=== PATIENT | male | born 1980 | race Caucasian/White ===

== ENCOUNTER 2016-08-09 19:59 | Emergency (ER) | payer OTHER ==
[~2016-08-09] VITALS: Ht 180.3 cm; Wt 88.9 kg
[~2016-08-09 19:59] MED LIST: Acetaminophen PO; MORPHINE IVP; VANCOCIN 11000 MG/20 IV
[2016-08-09 20:21] VITALS: BP 141/75
--- NOTE | 2016-08-09 20:33 | NUR ---
AMBULATED TO ER BED 6
--- NOTE | 2016-08-09 20:34 | NUR ---
A36Y M BIB SELF C/O LEFT ANKLE PAIN AT 1800 TODAY . PT STATES HE SLIPPED AND TWISTED HIS ANKLE ATTEMPTING TO JUMP PASS A POTHOLE .PT DENIES N/V/D; SKIN IS PINK/WARM/DRY; AAOX4 WITH EVEN AND STEADY GAIT; LUNGS CLEAR BL; HR EVEN AND REGULAR; PT DENIES ANY FEVER, CP, SOB, OR COUGH AT THIS TIME; PATIENT STATES PAIN OF 9/10 AT THIS TIME; VSS; PATIENT POSITIONED FOR COMFORT; HOB ELEVATED; BEDRAILS UP X2; BED DOWN. ER MD MADE AWARE OF PT STATUS.
--- NOTE | 2016-08-09 21:07 | NUR ---
Patient being evaluated by physician DR ANN at bedside.
[2016-08-09] MEDS ORDERED: KETOROLAC 60 MG/2 ML VIAL IM ONE (21:50)
[2016-08-09 23:08] VITALS: BP 128/69
--- NOTE | 2016-08-09 23:08 | NUR ---
Patient discharged with v/s stable. Written and verbal after care instructions given and explained. Patient alert, oriented and verbalized understanding of instructions. Wheel Chair Assisted with steady gait. All questions addressed prior to discharge. ID band removed. Patient advised to follow up with PMD. Rx of MOTRIN 800MG AND NORCO 5/325MG given. Patient educated on indication of medication including possible reaction and side effects. Opportunity to ask questions provided and answered.
== END 2016-08-09 23:08 | disposition home or self-care (01) ==
LOC: MED 19:59
DX: S86.002A Unspecified injury of left Achilles tendon, initial encounter (principal); X58.XXXA Exposure to other specified factors, initial encounter; Y93.89 Activity, other specified; Y92.89 Other specified places as the place of occurrence of the external cause; Y99.8 Other external cause status
CPT/HCPCS: 29515; 73610; 96372; 99284; J1885

== ENCOUNTER 2016-12-24 16:29 | Emergency (ER) | payer OTHER ==
[~2016-12-24] VITALS: Ht 180.3 cm; Wt 90.7 kg
[~2016-12-24 16:29] MED LIST changes: +MORP4SOL14 IVP; -MORPHINE IVP; -VANCOCIN 11000 MG/20 IV
[2016-12-24 16:37] VITALS: BP 131/60
--- NOTE | 2016-12-24 16:40 | NUR ---
Patient ambulated to bed 07.
--- NOTE | 2016-12-24 16:52 | NUR ---
Dr. Perez evaluating patient at bedside.
--- NOTE | 2016-12-24 17:00 | NUR ---
36/M c/o abscess to left upper thight x2 days. Pt c/o itchiness. Denies fever or chills. VSS.
[2016-12-24] MEDS ORDERED: SULFAMETH/TRIMETH DS 800/160MG 1 TAB PO ONE (17:10)
[2016-12-24] MEDS ORDERED: CEPHALEXIN 500 MG CAP PO ONE (17:10)
[2016-12-24 17:49] VITALS: BP 121/81
--- NOTE | 2016-12-24 17:49 | NUR ---
Patient discharged with v/s stable. Written and verbal after care instructions given and explained. Patient alert, oriented and verbalized understanding of instructions. Ambulatory with steady gait. All questions addressed prior to discharge. ID band removed. Patient advised to follow up with PMD. Rx of BACTRIM DS,MOTRIN,KEFLEX given. Patient educated on indication of medication including possible reaction and side effects. Opportunity to ask questions provided and answered.
--- NOTE | 2016-12-24 17:49 | NUR ---
Chart checked and completed. The patient's care was reviewed and supervised by Lynn Pinto RN.
== END 2016-12-24 17:49 | disposition home or self-care (01) ==
LOC: MED 16:29
DX: L03.116 Cellulitis of left lower limb (principal); R03.0 Elevated blood-pressure reading, without diagnosis of hypertension
CPT/HCPCS: 99283

== ENCOUNTER 2017-02-22 20:13 | Emergency (ER) | payer OTHER ==
[~2017-02-22] VITALS: Ht 180.3 cm; Wt 88.0 kg
[2017-02-22 20:19] VITALS: BP 132/78
--- NOTE | 2017-02-22 21:09 | NUR ---
36Y M BIB FAMILY C/O LEFT FOOT PAIN X 2 DAYS. PT STATES HE HAD SX ON THE FOOT ON 09/06/16 AND SINCE THEN HAS BEEN HAVING INTERMITTENT FOOT PAIN. PT STATES PAIN IS NUMBING 9/10 PAIN WHEN WALKING. PT BREATHING IS UNLABORED AND CLEAR BILAT. PT AAOX4.
--- NOTE | 2017-02-22 21:09 | NUR ---
Patient ambulated to bed 04.
[2017-02-22] MEDS ORDERED: NACL 0.9% 1,000 ML IV ONE (21:30)
[2017-02-22 21:39] LABS: BASOPHILS # (AUTO) 0.4 K/uL (0.00-0.22); EOSINOPHILS # (AUTO) 0.1 K/uL (0-0.4); HEMATOCRIT 44.9 % (36-52); HEMOGLOBIN 14.6 g/dL (12.0-18.0); MEAN CORPUSCULAR HEMOGLOBIN 29 pg (27-31); MEAN CORPUSCULAR HGB CONC 33 g/dL (33-37); MEAN CORPUSCULAR VOLUME 90 fL (80-94); MONOCYTES # (AUTO) 0.7 K/uL (0.8-1.0); NEUTROPHILS # (AUTO) 4.7 K/uL (1.8-7.7); PLATELET COUNT (AUTO) 233 K/uL (140-450); RED CELL DISTRIBUTION WIDTH 12.1 % (11.6-13.7); WHITE BLOOD COUNT (AUTO) 7.9 K/uL (4.8-10.8)
[2017-02-22 22:06] LABS: ALBUMIN 4.2 g/dL (3.4-5.0); ANION GAP 13.5 (8-16); CARBON DIOXIDE 23.4 mmol/L (21-32); POTASSIUM 3.9 mmol/L (3.5-5.1); TOTAL BILIRUBIN 0.4 mg/dL (0.0-1.0)
[2017-02-22 22:07] LABS: PROTHROMBIN TIME 10.6 secs (10.8-13.4)
[2017-02-22] MEDS ORDERED: KETOROLAC 30 MG/ML VIAL IVP ONE (22:15)
--- NOTE | 2017-02-22 22:25 | NUR ---
IV removed, catheter intact and site benign. Applied folded 4x4 gauze and tape to stop bleeding.
--- NOTE | 2017-02-22 22:28 | NUR ---
Patient discharged with v/s stable. Written and verbal after care instructions given and explained. Patient alert, oriented and verbalized understanding of instructions. Ambulatory with steady gait. All questions addressed prior to discharge. ID band removed. Patient advised to follow up with PMD. Rx of MOTRIN 800MG, KEFLEX 500MG, ULTRAM 50MG, AND BACTRIM DS given. Patient educated on indication of medication including possible reaction and side effects. Opportunity to ask questions provided and answered.
[2017-02-22 22:29] VITALS: BP 122/76
== END 2017-02-22 22:28 | disposition home or self-care (01) ==
LOC: MED 20:13
DX: L03.116 Cellulitis of left lower limb (principal); Z79.899 Other long term (current) drug therapy
CPT/HCPCS: 36415; 73610; 80053; 85025; 85610; 85730; 87040; 96361; 96374; 99285; J1885; J7030; Q0092

== ENCOUNTER 2017-03-17 14:27 | Emergency (ER) | payer OTHER ==
[~2017-03-17] VITALS: Ht 180.3 cm; Wt 89.9 kg
[2017-03-17 14:38] VITALS: BP 144/89
--- NOTE | 2017-03-17 15:49 | NUR ---
PATIENT TO BED 8 AT THIS TIME.
--- NOTE | 2017-03-17 15:57 | NUR ---
PATIENT PRESENTS TO ED WITH C/O ABSCESS ON RT BUTTOCKS x 2 DAYS AGO. PT STATES HE WAS REFFERED TO ER BY PMD. PT DENIES INJURY OR TRAUMA. ERYTHEMA NOTDED ON RT BUTTOCK;PT STATES HE HAS MRSA. DENIES N/V/D; SKIN IS PINK/WARM/DRY; AAOX4 WITH EVEN AND STEADY GAIT; LUNGS CLEAR BL; HR EVEN AND REGULAR; PT DENIES ANY FEVER, CP, SOB, OR COUGH AT THIS TIME; PATIENT STATES PAIN OF 10/10 AT THIS TIME;PATIENT POSITIONED FOR COMFORT; HOB ELEVATED; BEDRAILS UP X2; BED DOWN. ER MD MADE AWARE OF PT STATUS.
[2017-03-17] MEDS ORDERED: diphenhydrAMINE 50 MG/ML VIAL IM ONE (17:20)
[2017-03-17] MEDS ORDERED: MORPHINE SULFATE 4 MG/ML SYR IM ONE (17:20)
[2017-03-17] MEDS ORDERED: LIDOCAINE 1% 500 MG/50 ML VIAL INJ ONE (17:50)
--- NOTE | 2017-03-17 17:54 | NUR ---
PRINTING ASSISTANT AT BEDSIDE.
[2017-03-17] MEDS ORDERED: LIDOCAINE 1% ED 50 ML ONE (17:59)
[2017-03-17] MEDS ORDERED: fentaNYL 0.05 MG/ML VIAL ONE ×2 (18:09)
[2017-03-17] MEDS ORDERED: MIDAZOLAM 2 MG/2 ML VIAL ONE (18:10)
[2017-03-17] MEDS ORDERED: BACITRACIN OINT 500 UNITS/GM PKT TP ONE (18:16)
[2017-03-17 18:41] VITALS: BP 128/76
--- NOTE | 2017-03-17 18:41 | NUR ---
Patient discharged with v/s stable. Written and verbal after care instructions given and explained. Patient alert, oriented and verbalized understanding of instructions. Ambulatory with steady gait. All questions addressed prior to discharge. ID band removed. Patient advised to follow up with PMD. Rx of SEPTRA,KEFLEX AND NORCO given. Patient educated on indication of medication including possible reaction and side effects. Opportunity to ask questions provided and answered.
== END 2017-03-17 18:42 | disposition home or self-care (01) ==
LOC: MED 14:27
DX: L02.31 Cutaneous abscess of buttock (principal)
CPT/HCPCS: 10060; 96372; 99284; J1200; J2001; J2270; J2250; J3010

== ENCOUNTER 2019-04-24 16:45 | Emergency (ER) | payer OTHER ==
[~2019-04-24] VITALS: Ht 176.5 cm; Wt 93.9 kg
[2019-04-24 16:48] VITALS: BP 129/74
--- NOTE | 2019-04-24 16:55 | NUR ---
AMBULATE TO BED 04 WITH EVEN STEADY GAIT.
--- NOTE | 2019-04-24 16:58 | NUR ---
C/O LOC YESTERDAY AFTER 2 BEERS. THINKS HE FELL, BUT DON'T KNOW IF HE HIT HIS HEAD. LOC FOR 1 MINUTE LAST NIGHT. REGAINED CONSCIOUSNESS TO FRIENDS SITTING HIM UP. C/O FRONTAL/TEMPORAL HEADACHE NOW 12/30. STATES NAUSEA, NO VOMITING. WANTS TO KNOW THE CAUSE OF HIM LOSING CONSCIOUSNESS WITHOUT "BEING DRUNK". NAD. GCS 15. PERRLA. 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 EVEN STEADY GAIT. FULL CLEAR SPEECH. VSS. BEDRAILS UPX1; ERMD TO EVALUATE PATIENT. HX- CYSTS IN HEAD, MIGRAINE RX- NONE NKA Addendum: 04/24/19 at 1705 by QUANG CYSTS IN BRAIN*
--- NOTE | 2019-04-24 17:10 | NUR ---
Janneth de dios in EDM - 04/24/19 at 1713 by [facility] Patient will be admitted to care of dr salinas. Admited to TELE. Will go to room 125 A. [facility] list completed. Report to CALLIE WEEMS.
[2019-04-24] MEDS ORDERED: FAMOTIDINE 20 MG TAB PO ONE (17:30)
[2019-04-24] MEDS ORDERED: METOCLOPRAMIDE 10 MG TAB PO ONE (17:30)
[2019-04-24] MEDS ORDERED: METOCLOPRAMIDE 10 MG TAB ONE (17:34)
--- NOTE | 2019-04-24 18:14 | NUR ---
Patient being reevaluated by dr Cross at bedside.
[2019-04-24 18:24] VITALS: BP 117/79
--- NOTE | 2019-04-24 18:24 | NUR ---
Patient discharged with v/s stable. Written and verbal after care instructions given and explained. Patient alert, oriented and verbalized understanding of instructions. Ambulatory with steady gait. All questions addressed prior to discharge. ID band removed. Patient advised to follow up with PMD. Rx of fioricet given. Patient educated on indication of medication including possible reaction and side effects. Opportunity to ask questions provided and answered.
== END 2019-04-24 18:24 | disposition home or self-care (01) ==
LOC: MED 16:45
DX: S09.90XA Unspecified injury of head, initial encounter (principal); G43.909 Migraine, unspecified, not intractable, without status migrainosus; F10.10 Alcohol abuse, uncomplicated; Z86.69 Personal history of other diseases of the nervous system and sense organs; Z79.899 Other long term (current) drug therapy; W18.30XA Fall on same level, unspecified, initial encounter; Y93.01 Activity, walking, marching and hiking; Y92.89 Other specified places as the place of occurrence of the external cause; Y99.8 Other external cause status
CPT/HCPCS: 70450; 99284; J8597

== ENCOUNTER 2019-07-21 15:16 | Emergency (ER) | payer OTHER ==
[~2019-07-21] VITALS: Ht 180.3 cm; Wt 94.3 kg
[2019-07-21 15:56] VITALS: BP 108/72
--- NOTE | 2019-07-21 16:09 | NUR ---
WAIT AT LOBBY
--- NOTE | 2019-07-21 16:26 | NUR ---
PT AMB TO ER BED 10
[2019-07-21] MEDS ORDERED: FAMOTIDINE 20 MG TAB PO ONE (16:55)
[2019-07-21] MEDS ORDERED: ONDANSETRON 4 MG ODT PO ONE (16:55)
--- NOTE | 2019-07-21 17:00 | NUR ---
C/O N/V HEADACHE SINCE LAST NIGHT. PATIENT HAS DEVELOPED COUGH TODAY. PT REPORTS 10 EPISODES OF EMESIS. BOWEL SOUNDS ARE NORMO ACTIVE, ABD FIRM/NON TENDER. NO SOB/CHEST PAIN NOTED. SKIN DRY AND INTACT. CAP REFILL <3. RESP EVEN AND UNLABORED. NO CHILLS PRESENT. AAOX4. PMH: ASTHMA NKA
[2019-07-21 17:19] VITALS: BP 126/74
--- NOTE | 2019-07-21 17:19 | NUR ---
Patient discharged with v/s stable. Written and verbal after care instructions given and explained. Patient alert, oriented and verbalized understanding of instructions. Ambulatory with steady gait. All questions addressed prior to discharge. ID band removed. Patient advised to follow up with PMD. Rx of PEPCID, ZOFRAN given. Patient educated on indication of medication including possible reaction and side effects. Opportunity to ask questions provided and answered.
== END 2019-07-21 17:19 | disposition home or self-care (01) ==
LOC: MED 15:16
DX: K21.9 Gastro-esophageal reflux disease without esophagitis (principal); J45.909 Unspecified asthma, uncomplicated; Z79.899 Other long term (current) drug therapy
CPT/HCPCS: 99283; Q0162

== ENCOUNTER 2019-07-22 22:04 | Emergency (ER) | payer OTHER ==
[~2019-07-22] VITALS: Ht 180.3 cm; Wt 94.3 kg
[2019-07-22 22:05] VITALS: BP 126/90
--- NOTE | 2019-07-22 22:05 | NUR ---
to bed # 03 ambulatory
--- NOTE | 2019-07-22 22:32 | NUR ---
39 Y/O MALE PRESENTS TO ED, C/O HICCUPS X3 DAYS. PT WAS SEEN AT ED YESTERDAY FOR NAUSEA AND VOMITING; PT DENIES ANY N/V TODAY. STATES HAVING HICCUPS AND BURNING SENSATION IN THROAT. PT DENIES ANY SOB/DIFFICULTY BREATHING. PT LUNG SOUNDS BILAT CLEAR. PT DENIES ANY CHEST PAIN. PT VSS. ERMD AWARE. WILL CONTINUE TO MONITOR.
--- NOTE | 2019-07-22 22:51 | NUR ---
XRAY AT BEDSIDE
[2019-07-22] MEDS ORDERED: chlorproMAZINE 25 MG/ML AMP IM ONE (23:20)
[2019-07-22] MEDS ORDERED: DEXAMETHASONE 10 MG/ML VIAL PO ONE (23:20)
[2019-07-22] MEDS ORDERED: chlorproMAZINE 25 MG TAB ONE (23:34)
[2019-07-22] MEDS ORDERED: chlorproMAZINE 25 MG TAB PO STA (23:36)
[2019-07-23] MEDS ORDERED: DICYCLOMINE HCL LIQUID 20 MG, ALUMINUM HYD/MAG/SIMETHICONE 30 ML, LIDOCAINE VISCOUS 2% ... PO ONE ×3 (00:05)
[2019-07-23] MEDS ORDERED: DICYCLOMINE HCL LIQUID 10 MG/5 ML UDC ONE (00:15)
[2019-07-23] MEDS ORDERED: LIDOCAINE VISCOUS 2% 20 ML UDC ONE (00:15)
[2019-07-23] MEDS ORDERED: ALUMINUM HYD/MAG/SIMETHICONE 30 ML UDC ONE (00:15)
--- NOTE | 2019-07-23 00:46 | NUR ---
Patient discharged with v/s stable. Written and verbal after care instructions given and explained. Patient alert, oriented and verbalized understanding of instructions. Ambulatory with steady gait. All questions addressed prior to discharge. ID band removed. Patient advised to follow up with PMD. Rx of CHLORPROMAZINE AND MYLANTA given. Patient educated on indication of medication including possible reaction and side effects. Opportunity to ask questions provided and answered.
== END 2019-07-23 00:46 | disposition home or self-care (01) ==
LOC: MED 22:04
DX: J04.0 Acute laryngitis (principal); R06.6 Hiccough; J45.909 Unspecified asthma, uncomplicated; Z79.899 Other long term (current) drug therapy
CPT/HCPCS: 71045; 87804; 99284; J1100; Q0092

== ENCOUNTER 2020-05-18 07:54 | Emergency (ER) | payer OTHER ==
[~2020-05-18] VITALS: Ht 180.3 cm; Wt 90.7 kg
[2020-05-18 08:00] VITALS: BP 137/90
--- NOTE | 2020-05-18 08:04 | NUR ---
Patient ambulated to bed 4. RN evaluating patient at bedside.
--- NOTE | 2020-05-18 08:15 | NUR ---
DR. LEACH AT BEDSIDE.
--- NOTE | 2020-05-18 08:20 | NUR ---
40 Y/M PRESENTS FOR CHRONIC BACK PAIN. SKIN INTACT, NO DISCOLORATION NOTED. PT REPORTS 10/10 PAIN. PAIN IS UNRELIEVED BY TYLENOL AND MOTRIN 800MG. PT AWAITING SURGERY AND HERE FOR PAIN MANAGMENT. PT SEEING PHYSICAL THERAPY C NO RELIEF. PT REPORTS HIS PAIN MANAGEMENT APT NOT UNTIL JUN 19 AND "CANT HANDLE THE PAIN". NO TRAUMA NOR INJURY. PT DENIES DYSURIA OR HEMATURIA, N/V/D. PMH- ACHILLES, NKDA
[2020-05-18 08:55] VITALS: BP 137/90
== END 2020-05-18 08:55 | disposition home or self-care (01) ==
LOC: MED 07:54
DX: M54.5 Low back pain (principal); J45.909 Unspecified asthma, uncomplicated; Z79.899 Other long term (current) drug therapy
CPT/HCPCS: 99283

== ENCOUNTER 2020-07-25 16:49 | Emergency (ER) | payer OTHER ==
[~2020-07-25] VITALS: Ht 180.3 cm; Wt 88.5 kg
[2020-07-25 17:02] VITALS: BP 164/84
--- NOTE | 2020-07-25 17:07 | NUR ---
PATIENT AMBULATED TO BED 12
[2020-07-25] MEDS: KETOROLAC 60 MG/2 ML VIAL IM ONE (17:55)
[2020-07-25] MEDS: CYCLOBENZAPRINE 10 MG TAB PO ONE (17:55)
--- NOTE | 2020-07-25 17:57 | NUR ---
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 PATIENT STATES PAIN IS 10/10, HAS SELF MEDICATED WITH IBUPROFEN 800MG WITH NO RELIEF. CAP REFILL <3, CMS IN TACT. ABLE TO PERFORM ROM WITH PAIN.
[2020-07-25 19:17] VITALS: BP 164/84
--- NOTE | 2020-07-25 19:17 | NUR ---
Patient discharged with v/s stable. Written and verbal after care instructions given and explained. Patient alert, oriented and verbalized understanding of instructions. Ambulatory with steady gait. All questions addressed prior to discharge. ID band removed. Patient advised to follow up with PMD. Rx of NORCO, IBUPROFEN, ROBAXIN given. Patient educated on indication of medication including possible reaction and side effects. Opportunity to ask questions provided and answered.
== END 2020-07-25 19:17 | disposition home or self-care (01) ==
LOC: MED 16:49
DX: M25.512 Pain in left shoulder (principal); M54.2 Cervicalgia; J45.909 Unspecified asthma, uncomplicated; Z79.899 Other long term (current) drug therapy
CPT/HCPCS: 96372; 99283; J1885

== ENCOUNTER 2020-10-09 19:05 | Emergency (ER) | payer OTHER ==
[~2020-10-09] VITALS: Ht 180.3 cm; Wt 89.8 kg
[2020-10-09 19:19] VITALS: BP 157/97
[2020-10-09] MEDS ORDERED: KETOROLAC 60 MG/2 ML VIAL IM ONE (22:25)
[2020-10-09] MEDS ORDERED: ACET-8386 PO (22:30)
[2020-10-09] MEDS ORDERED: IBUP-2213 PO (22:30)
[2020-10-09 22:46] VITALS: BP 157/97
== END 2020-10-09 22:47 | disposition home or self-care (01) ==
LOC: MED 19:05
DX: S81.052D Open bite, left knee, subsequent encounter (principal); J45.909 Unspecified asthma, uncomplicated; Z98.890 Other specified postprocedural states; Z79.899 Other long term (current) drug therapy; X58.XXXD Exposure to other specified factors, subsequent encounter
CPT/HCPCS: 96372; 99283; J1885

== ENCOUNTER 2020-10-14 23:31 | Emergency (ER) | payer OTHER ==
[~2020-10-14] VITALS: Ht 180.3 cm; Wt 90.3 kg
[~2020-10-14 23:31] MED LIST changes: +ACET-8386 PO; +IBUP-2213 PO
[2020-10-14 23:38] VITALS: BP 152/77
--- NOTE | 2020-10-14 23:44 | NUR ---
PT AMBULATED TO BED #2
--- NOTE | 2020-10-14 23:58 | NUR ---
40 y/o M, bib self d/t c/o pain and numbness to Left Knee. Hx of Dog bite on area. ERMD at bedside. Pt also complained of head trauma. (-) n/v. (-) dizziness or blurred vision. PMH: none Allergy: none
--- NOTE | 2020-10-15 00:10 | NUR ---
Patient came back from CT
[2020-10-15 01:58] VITALS: BP 152/77
--- NOTE | 2020-10-15 01:59 | NUR ---
Patient discharged with v/s stable. Written and verbal after care instructions given and explained. Patient verbalized understanding. Ambulatory with steady gait. All questions addressed prior to discharge. Advised to follow up with PMD.
== END 2020-10-15 01:30 | disposition home or self-care (01) ==
LOC: MED 23:31
DX: S09.90XA Unspecified injury of head, initial encounter (principal); S81.852D Open bite, left lower leg, subsequent encounter; J45.909 Unspecified asthma, uncomplicated; W22.8XXA Striking against or struck by other objects, initial encounter; Y93.89 Activity, other specified; Y92.89 Other specified places as the place of occurrence of the external cause; Y99.8 Other external cause status
CPT/HCPCS: 70450; 99284

== ENCOUNTER 2021-03-23 23:54 | Emergency (ER) | payer OTHER ==
[~2021-03-23] VITALS: Ht 180.3 cm; Wt 90.3 kg
--- NOTE | 2021-03-24 00:02 | NUR ---
PT BROUGHT TO BED 10 VIA KATELYNN FARRAR WITH PD
[2021-03-24 00:05] VITALS: BP 143/93
--- NOTE | 2021-03-24 00:05 | NUR ---
BIBA WITH PD AT SIDE AFTER ARGUMENT/ ALTERCATION WITH FAMILY. ABRASIONS TO LEFT KNEE.
--- NOTE | 2021-03-24 01:03 | NUR ---
PT REFUSED EKG
[2021-03-24 02:06] VITALS: BP 143/93
--- NOTE | 2021-03-24 02:06 | NUR ---
PATIENT BIB [employer]. PATIENT EXAMINED BY DR. DEAL. PATIENT MEDICALLY CLEARED AND RELEASED IN CUSTODY IN STABLE CONDITION. ORIGINAL PRE-BOOK FORM GIVEN TO OFFICER ANGELA.
== END 2021-03-24 02:06 ==
LOC: MED 23:54
DX: T75.4XXA Electrocution, initial encounter (principal); F14.90 Cocaine use, unspecified, uncomplicated; J45.909 Unspecified asthma, uncomplicated; Z79.899 Other long term (current) drug therapy; Y35.833A Legal intervention involving a conducted energy device, suspect injured, initial encounter; Y93.89 Activity, other specified; Y92.89 Other specified places as the place of occurrence of the external cause; Y99.8 Other external cause status
CPT/HCPCS: 93005; 99283

== ENCOUNTER 2021-06-03 19:07 | Emergency (ER) | payer OTHER ==
[~2021-06-03] VITALS: Ht 180.3 cm; Wt 88.5 kg
[2021-06-03 19:07] VITALS: BP 162/101
--- NOTE | 2021-06-03 19:14 | NUR ---
PATIENT AMBULATED TO BED 8.
--- NOTE | 2021-06-03 19:21 | NUR ---
41 YO/M BIB SELF W C/O ONGOING TINGLING TO L/R ARMS WORSE ON L ARM AND L SIDE OF NECK, + EPISODES OF NUMBESS TO BL ARMS W CERTAIN POSITIONS, + L SHOULDER BLADE SWELLING AND L SIDE NECK PAIN INTERMITTENT SHARP/STIFF 10. PT ALSO REPORTS DURING PUSH-UPS HIS L SHOULDER/ARM "GIVE UP" AND IS UNABLE TO DO PUSH-UPS LIKE BEFORE. PT REPORTS HAS TRIED RESTING, ICEING, ICYHOT W/O IMPROVEMENT. PT ASLO REPORTS EPISODES OF MIGRAINES. PT DENIES INJURIES. + SENSATION TO BL ARMS, +2 RADIAL PULSES, +ROM. PT SITTING IN BED LOCKED IN LOWEST POSITION W X1 SIDERAIL UP. BREATHING EVEN AND UNLABORED. NAD NOTED, WILL CONTINUE TO MONITOR. PMH:ASTHMA NKA
--- NOTE | 2021-06-03 19:21 | NUR ---
PT MOVED TO ER BED 9
--- NOTE | 2021-06-03 19:50 | NUR ---
Dr. Polo examining patient.
[2021-06-03] MEDS: ACETAMINOPHEN EXTRA STRENGTH 500 MG TAB PO ONE (20:11)
[2021-06-03 20:28] LABS: BASOPHILS % (AUTO) 0.2 % (0.0-2.0); EOSINOPHILS # (AUTO) 0.1 K/uL (0-0.4); HEMATOCRIT 45.9 % (36-52); HEMOGLOBIN 15.7 g/dL (12.0-18.0); LYMPHOCYTES # (AUTO) 1.7 K/uL (2.0-11.5); MEAN CORPUSCULAR HEMOGLOBIN 30 pg (27-31); MEAN CORPUSCULAR HGB CONC 34 g/dL (33-37); MEAN CORPUSCULAR VOLUME 88.8 fL (80-94); MONOCYTES # (AUTO) 0.6 K/uL (0.8-1.0); MONOCYTES % (AUTO) 9.2 % (1.7-9.3); NEUTROPHILS # (AUTO) 4.5 K/uL (1.8-7.7); NEUTROPHILS % (AUTO) 63.6 % (42.2-75.2); PLATELET COUNT (AUTO) 281 K/uL (140-450); RED BLOOD CELL COUNT(AUTO) 5.16 MIL/uL (4.20-6.10); RED CELL DISTRIBUTION WIDTH 13.2 % (11.6-13.7)
[2021-06-03 20:37] LABS: ANION GAP 12.4 (8-16); CARBON DIOXIDE 28.3 mmol/L (21-32); CREATININE 0.9 mg/dL (0.6-1.3); POTASSIUM 3.7 mmol/L (3.5-5.1)
--- NOTE | 2021-06-03 22:02 | NUR ---
PT C/O OF ONGOING MIGRAINE W ONLY MILD IMPROVEMENT AND ONGOING L SHOULDER PAIN. ERMD MADE AWARE. PT REPORTS HE CAN HAVE SOMEONE DRIVE HIM HOME IF NEEDED FOR PAIN MEDICATION THAT IS CONTRAINDICATED W DRIVING.
[2021-06-03] MEDS: MORPHINE SULFATE 4 MG/ML SYR IM ONE (22:22)
[2021-06-03] MEDS ORDERED: ACET-10509 PO (23:03)
--- NOTE | 2021-06-03 23:16 | NUR ---
PT REPORTS IMPROVEMENT OF MIGRAINE. PT REPORTS ONGOING L SHOULDER PAIN.
[2021-06-03] MEDS ORDERED: CYCL-711 PO (23:17)
[2021-06-03 23:18] VITALS: BP 117/82
== END 2021-06-03 23:18 | disposition home or self-care (01) ==
LOC: MED 19:07
DX: M47.22 Other spondylosis with radiculopathy, cervical region (principal); M48.02 Spinal stenosis, cervical region; R20.2 Paresthesia of skin; G43.909 Migraine, unspecified, not intractable, without status migrainosus; J45.909 Unspecified asthma, uncomplicated; Z98.890 Other specified postprocedural states; Z79.899 Other long term (current) drug therapy; Z79.1 Long term (current) use of non-steroidal anti-inflammatories (NSAID); Z79.891 Long term (current) use of opiate analgesic
CPT/HCPCS: 36415; 70450; 71046; 72125; 73020; 80048; 84484; 85025; 93005; 96372; 99285; J2270

== ENCOUNTER 2021-12-21 11:43 | Emergency (ER) | payer OTHER ==
[~2021-12-21] VITALS: Ht 177.8 cm; Wt 77.1 kg
[~2021-12-21 11:43] MED LIST changes: +ACET-10509 PO; +CYCL-711 PO
[2021-12-21 11:57] VITALS: BP 135/96
[2021-12-21] MEDS ORDERED: TETRACAINE HCL/PF 0.5% OPTH 4 ML BTL OP ONE (12:55)
[2021-12-21] MEDS ORDERED: FLUORESCEIN OPTH STRIP 1 MG OP ONE (12:55)
[2021-12-21] MEDS ORDERED: ALUMINUM HYD/MAG/SIMETHICONE 30 ML, DICYCLOMINE HCL LIQUID 20 MG, LIDOCAINE VISCOUS 2% ... PO ONE ×3 (13:50)
[2021-12-21] MEDS ORDERED: ALUMINUM HYD/MAG/SIMETHICONE 30 ML UDC ONE (14:31)
[2021-12-21] MEDS ORDERED: DICYCLOMINE HCL LIQUID 10 MG/5 ML UDC ONE (14:31)
--- NOTE | 2021-12-21 14:52 | NUR ---
PT AMBULATED TO BED 7
--- NOTE | 2021-12-21 14:53 | NUR ---
EMT AT BEDSIDE FOR EYE IRRIGATION
--- NOTE | 2021-12-21 14:53 | NUR ---
41YO MALE PT C/O BURNING/ SCRATCHING 04/01 EYE PAIN XTODAY. 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 DENIES WEARING PROTECTIVE WEAR. PT STATES IT "KNOCKED HIS AIR OUT". PT EYES PRESENT REDDENED, PERRLA X2. PT HAS FULL ROM OF BOTH EYES WITH SOME DISCOMFORT. PT REPORTS "BLURRYNESS" IN EYES X2. PRIOR TO ARRIVAL PT STATES USING "TEAR DROPS" , HAD MILD RELIEF. PT DENIES N/V/D OR CHEST PAIN AT THIS TIME. PT AAOX4, RESPIRATIONS EVEN AND UNLABORED. NKA NHX
--- NOTE | 2021-12-21 14:59 | NUR ---
PT L EYE IRRIGATED WITH NORMAL SALINE 1000mL
[2021-12-21] MEDS ORDERED: ERYT5OIN51 OP (15:03)
--- NOTE | 2021-12-21 15:23 | NUR ---
PT REPORTS "RELIEF " IN EYES , DENIES PAIN AT THIS TIME. EYE IRRIGATION STILL IN PROCESS
--- NOTE | 2021-12-21 15:24 | NUR ---
PT TOLERATED IRRIGATION WELL. DENIES PAIN OR DISCOMFORT.
--- NOTE | 2021-12-21 15:50 | NUR ---
Patient discharged with v/s stable. Written and verbal after care instructions FOR CHEMICAL BURN OF THE EYES given and explained. Patient alert, oriented and verbalized understanding of instructions. Ambulatory with steady gait. All questions addressed prior to discharge. ID band removed. Patient advised to follow up with PMD. Rx of ERYTHROMYCIN given. Opportunity to ask questions provided and answered.
[2021-12-21 15:51] VITALS: BP 138/70
--- NOTE | 2021-12-21 15:51 | NUR ---
The patient's care was reviewed and supervised by Chrystal Perez RN.
== END 2021-12-21 15:51 | disposition home or self-care (01) ==
LOC: MED 11:43
DX: H10.212 Acute toxic conjunctivitis, left eye (principal); J45.909 Unspecified asthma, uncomplicated; Z79.899 Other long term (current) drug therapy
CPT/HCPCS: 99284

== ENCOUNTER 2022-09-27 13:26 | Emergency (ER) | payer OTHER ==
[~2022-09-27] VITALS: Ht 175.3 cm; Wt 74.8 kg
[~2022-09-27 13:26] MED LIST changes: -ACET-8386 PO; +ACET-8905 PO; +ERYT5OIN51 OP
[2022-09-27 13:41] VITALS: BP 134/89
[2022-09-27] MEDS ORDERED: CEPH-588 PO (15:30)
--- NOTE | 2022-09-27 15:34 | NUR ---
berhane wrap x 1 to r knee + cms
[2022-09-27] MEDS ORDERED: NAPR-54 PO (15:43)
--- NOTE | 2022-09-27 15:50 | NUR ---
Patient discharged with v/s stable. Written and verbal after care instructions given and explained. Patient alert, oriented and verbalized understanding of instructions. Ambulatory with steady gait. All questions addressed prior to discharge. ID band removed. Patient advised to follow up with PMD. Rx of KEFLEX, NAPROXEN given. Patient educated on indication of medication including possible reaction and side effects. Opportunity to ask questions provided and answered.
== END 2022-09-27 15:50 | disposition home or self-care (01) ==
LOC: MED 13:26
DX: M25.561 Pain in right knee (principal); M79.672 Pain in left foot; R03.0 Elevated blood-pressure reading, without diagnosis of hypertension; J45.909 Unspecified asthma, uncomplicated; Z79.899 Other long term (current) drug therapy
CPT/HCPCS: 73562; 73630; 99284

== ENCOUNTER 2022-09-30 20:31 | Emergency (ER) | payer OTHER ==
[~2022-09-30] VITALS: Ht 180.3 cm; Wt 88.5 kg
[~2022-09-30 20:31] MED LIST changes: +CEPH-588 PO; +NAPR-54 PO
[2022-09-30 23:01] VITALS: BP 132/89
--- NOTE | 2022-09-30 23:08 | NUR ---
MD Meade assessing pt at this time.
--- NOTE | 2022-09-30 23:09 | NUR ---
42 M from home with c/o Bilateral Knee pain associated with swelling, redness, & WTT. States he was seen in ED on 09/27/22 for same complaint and symptoms have worsen.
--- NOTE | 2022-10-01 00:35 | NUR ---
PT TO BED #11
[2022-10-01] MEDS ORDERED: KETOROLAC 30 MG/ML VIAL IM ONE (01:05)
[2022-10-01] MEDS ORDERED: KETOROLAC 30 MG/ML VIAL ONE (01:09)
[2022-10-01] MEDS ORDERED: LIDOCAINE 1% 500 MG/ 50 ML VIAL INJ ONE (01:10)
[2022-10-01] MEDS ORDERED: LIDOCAINE MPF 1% 5 ML ONE (01:14)
--- NOTE | 2022-10-01 01:30 | NUR ---
asked to get lidocaine and leceration tray. items were provided.
[2022-10-01] MEDS ORDERED: IBUP-2213 PO (01:35)
[2022-10-01] MEDS ORDERED: SULF-59 PO (01:35)
--- NOTE | 2022-10-01 01:55 | NUR ---
berhane wrapped was provided for pt.
[2022-10-01 01:58] VITALS: BP 132/89
--- NOTE | 2022-10-01 02:01 | NUR ---
Patient discharged with v/s stable. Written and verbal after care instructions given and explained. Patient verbalized understanding. Ambulatory with steady gait. All questions addressed prior to discharge. Advised to follow up with PMD. Pt left with belongings
== END 2022-10-01 02:01 | disposition home or self-care (01) ==
LOC: MED 20:31
DX: L02.415 Cutaneous abscess of right lower limb (principal); L03.115 Cellulitis of right lower limb; J45.909 Unspecified asthma, uncomplicated; Z79.899 Other long term (current) drug therapy; Z79.1 Long term (current) use of non-steroidal anti-inflammatories (NSAID); Z79.2 Long term (current) use of antibiotics; Z79.891 Long term (current) use of opiate analgesic
CPT/HCPCS: 10060; 72170; 96372; 99284; J1885; J2001

== ENCOUNTER 2023-05-10 22:53 | Emergency (ER) | payer OTHER ==
[~2023-05-10] VITALS: Ht 180.3 cm; Wt 95.3 kg
[~2023-05-10 22:53] MED LIST changes: +SULF-59 PO
[2023-05-10 23:50] VITALS: BP 120/74; PULSE 105; RESP 18; TEMP 97.7; O2SAT 5
[2023-05-11] MEDS ORDERED: LIDOCAINE MPF 1% 10 MG/ML VIAL INJ ONE (01:30)
[2023-05-11 02:00] VITALS: O2SAT 5
[2023-05-11] MEDS ORDERED: CHLO473S62 PO (02:16)
[2023-05-11] MEDS ORDERED: ACET-2619 PO (02:21)
[2023-05-11] MEDS ORDERED: IBUP-2213 PO (02:21)
== END 2023-05-11 02:41 | disposition home or self-care (01) ==
LOC: MED 22:53
DX: S01.81XA Laceration without foreign body of other part of head, initial encounter (principal); S01.511A Laceration without foreign body of lip, initial encounter; J45.909 Unspecified asthma, uncomplicated; Z79.899 Other long term (current) drug therapy; Z79.1 Long term (current) use of non-steroidal anti-inflammatories (NSAID); Z79.2 Long term (current) use of antibiotics; Y08.89XA Assault by other specified means, initial encounter; Y93.89 Activity, other specified; Y92.59 Other trade areas as the place of occurrence of the external cause; Y99.8 Other external cause status
CPT/HCPCS: 12013; 99283

== ENCOUNTER 2023-05-13 21:03 | Emergency (ER) | payer OTHER ==
[~2023-05-13] VITALS: Ht 180.3 cm; Wt 94.3 kg
[~2023-05-13 21:03] MED LIST changes: +ACET-2619 PO; +CHLO473S62 PO
[2023-05-13 21:07] VITALS: BP 123/88; PULSE 84; RESP 17; TEMP 98.6; O2SAT 98
[2023-05-13] MEDS ORDERED: LIDOCAINE MPF 1% 10 MG/ML VIAL INJ ONE (23:10)
[2023-05-14] MEDS ORDERED: cefTRIAXone 1,000 MG in LIDOCAINE MPF 1% 2.1 ML IM ONE (00:30)
[2023-05-14] MEDS ORDERED: cefTRIAXone 1,000 MG VIAL ONE (00:41)
[2023-05-14] MEDS ORDERED: PENI500T20 PO (00:52)
== END 2023-05-14 01:00 | disposition home or self-care (01) ==
LOC: MED 21:03
DX: S01.81XD Laceration without foreign body of other part of head, subsequent encounter (principal); L03.211 Cellulitis of face; Z48.02 Encounter for removal of sutures; J45.909 Unspecified asthma, uncomplicated; Z79.899 Other long term (current) drug therapy; Z79.1 Long term (current) use of non-steroidal anti-inflammatories (NSAID); Z79.2 Long term (current) use of antibiotics; X58.XXXD Exposure to other specified factors, subsequent encounter
CPT/HCPCS: 90471; 90715; 96372; 99284; J0696; J2001

== ENCOUNTER 2023-05-19 13:27 | Emergency (ER) | payer OTHER ==
[~2023-05-19] VITALS: Ht 175.3 cm; Wt 77.1 kg
[~2023-05-19 13:27] MED LIST changes: +PENI500T20 PO
[2023-05-19 13:50] VITALS: BP 139/93; PULSE 140; RESP 17; TEMP 97.4; O2SAT 99
[2023-05-19] MEDS ORDERED: NACL 0.9% 1,000 ML IV ONE (14:00)
[2023-05-19 14:45] VITALS: BP 139/67; PULSE 90; RESP 17; O2SAT 98
== END 2023-05-19 14:45 ==
LOC: MED 13:27
DX: Z02.89 Encounter for other administrative examinations (principal); R00.0 Tachycardia, unspecified; J45.909 Unspecified asthma, uncomplicated; Z79.899 Other long term (current) drug therapy; Z79.2 Long term (current) use of antibiotics; Z79.1 Long term (current) use of non-steroidal anti-inflammatories (NSAID); V89.2XXA Person injured in unspecified motor-vehicle accident, traffic, initial encounter; Y93.89 Activity, other specified; Y92.410 Unspecified street and highway as the place of occurrence of the external cause; Y99.8 Other external cause status
CPT/HCPCS: 99283